=== PATIENT | female | born 1945 | race Caucasian/White ===

== ENCOUNTER 2017-03-15 16:27 | Outpatient (CLI) | payer MEDICARE, OTHER | END 2017-03-15 23:59 | disposition critical access hospital (66) | DX: R51 Headache (principal); M54.9 Dorsalgia, unspecified; W18.39XA Other fall on same level, initial encounter; W22.8XXA Striking against or struck by other objects, initial encounter; Y92.009 Unspecified place in unspecified non-institutional (private) residence as the place of occurrence of the external cause | CPT/HCPCS: A0425; A0427 ==

== ENCOUNTER 2017-03-15 16:55 | Emergency (ER) | payer MEDICARE, OTHER | END 2017-03-15 18:38 | disposition home or self-care (01) | DX: M54.9 Dorsalgia, unspecified (principal); W18.39XA Other fall on same level, initial encounter; R03.0 Elevated blood-pressure reading, without diagnosis of hypertension; R42 Dizziness and giddiness; M79.7 Fibromyalgia; M54.5 Low back pain; G89.29 Other chronic pain; Z96.89 Presence of other specified functional implants; E78.5 Hyperlipidemia, unspecified; Z87.891 Personal history of nicotine dependence ==